=== PATIENT | female | born 1950 | race Caucasian/White ===

== ENCOUNTER 2021-08-21 16:12 | Emergency (ER) | payer MEDICARE ==
[~2021-08-21] VITALS: Ht 162.6 cm; Wt 88.2 kg
[2021-08-21] MEDS ORDERED: VENLAFAXINE HYD75 MG PO (18:21)
[2021-08-21] MEDS ORDERED: LEVOXYL0.112 MG PO (18:22)
[2021-08-21] MEDS ORDERED: LYRICA 150MG C150 MG PO (18:23)
[2021-08-21] MEDS ORDERED: LYRICA75 MG PO (18:23)
[2021-08-21] MEDS ORDERED: REMERON15 MG PO (18:24)
[2021-08-21] MEDS ORDERED: MS CONTIN30 MG PO (18:24)
[2021-08-21] MEDS ORDERED: KLONOPIN 0.5MG0.5 MG PO (18:24)
[2021-08-21] MEDS ORDERED: ADULT ASPIRIN R81 MG PO (18:25)
[2021-08-21] MEDS ORDERED: LOVASTATIN10 M1 PO (18:25)
[2021-08-21] MEDS ORDERED: OZEMPIC0.25 MG/0. SQ (18:26)
[2021-08-21] MEDS ORDERED: LEVEMIR FLEX100 U/ML SQ (18:28)
[2021-08-21] MEDS ORDERED: HUMALOG KWIKPEN SQ (18:29)
[2021-08-21] MEDS ORDERED: METFORMIN HYD1000 MG PO (18:30)
[2021-08-21 21:05] VITALS: BP 129/69
== END 2021-08-21 21:05 | disposition home or self-care (01) ==
LOC: ED 16:12
DX: F41.9 Anxiety disorder, unspecified (principal); E11.9 Type 2 diabetes mellitus without complications; M79.7 Fibromyalgia; F17.210 Nicotine dependence, cigarettes, uncomplicated; Z79.4 Long term (current) use of insulin; Z79.84 Long term (current) use of oral hypoglycemic drugs; Z79.899 Other long term (current) drug therapy
CPT/HCPCS: J2550